=== PATIENT | female | born 1975 | race Two or more races ===

== ENCOUNTER 2023-11-11 18:32 | Emergency (ER) | payer OTHER ==
[~2023-11-11] VITALS: Ht 157.5 cm; Wt 120.2 kg
[2023-11-11] MEDS ORDERED: COZAAR50 MG PO (19:48)
[2023-11-11] MEDS ORDERED: DEXAMETHASONE SODIUM PHOSPHATE 4 MG/ML VIAL IM STA (21:11)
[2023-11-11] MEDS ORDERED: KETOROLAC TROMETHAMINE 60 MG VIAL IM STA (21:11)
== END 2023-11-11 23:06 | disposition home or self-care (01) ==
LOC: ER 18:33
DX: M25.561 Pain in right knee (principal); Z88.6 Allergy status to analgesic agent; Z88.8 Allergy status to other drugs, medicaments and biological substances; M17.11 Unilateral primary osteoarthritis, right knee